=== PATIENT | female | born 1950 | race Caucasian/White ===

== ENCOUNTER 2021-07-20 19:33 | Emergency (ER) | payer MEDICARE ==
[2021-07-20] MEDS ORDERED: PROVENTIL HFA6.7 GM INH (22:52)
== END 2021-07-20 23:00 | disposition home or self-care (01) ==
LOC: ER1 19:33
DX: U07.1 COVID-19 (principal); E78.5 Hyperlipidemia, unspecified; I10 Essential (primary) hypertension; Z88.0 Allergy status to penicillin
CPT/HCPCS: 71045; 94664; 99284

== ENCOUNTER 2022-05-15 10:31 | Emergency (ER) | payer OTHER ==
[~2022-05-15 10:31] MED LIST: PROVENTIL HFA6.7 GM INH
[2022-05-15] MEDS ORDERED: AMOX TR-K CLV1 EAC4 PO (14:02)
[2022-05-15 14:20] LABS: HEMOGLOBIN 11.6 gm/dl (12.3-15.3); RED BLOOD COUNT 3.68 M/UL (4.00-5.10); WHITE BLOOD COUNT 11.1 K/UL (4.5-11.0)
[2022-05-15 14:50] LABS: BUN/CREATININE RATIO 14 (0-10)
== END 2022-05-15 16:05 | disposition home or self-care (01) ==
LOC: ER1 10:31
PROVIDERS: Nurse Practitioner
DX: R07.89 Other chest pain (principal); R10.816 Epigastric abdominal tenderness; M54.50 Low back pain, unspecified; M54.6 Pain in thoracic spine; I10 Essential (primary) hypertension; Z88.0 Allergy status to penicillin; V43.52XA Car driver injured in collision with other type car in traffic accident, initial encounter
CPT/HCPCS: 70450; 71260; 72125; 72128; 72131; 73030; 73060; 73100; 73130; 73590; 80053; 85025; 93005; 96374; 96375; 99284; J2270; J2405; Q9967